=== PATIENT | female | born 1985 | race Hispanic/Latino ===

== ENCOUNTER 2020-11-30 18:53 | Emergency (ER) | payer BC ==
[~2020-11-30] VITALS: Ht 162.6 cm; Wt 90.7 kg
[2020-11-30] MEDS ORDERED: IBU600 MG PO (19:08)
[2020-11-30] MEDS ORDERED: CIPROFLOX-DEXA7.5 ML AD (19:09)
[2020-11-30] MEDS ORDERED: AMOX TR-K CLV1 EAC1 PO (19:09)
[2020-11-30] MEDS ORDERED: HYDROCODON-ACE1 EA10 PO (20:05)
== END 2020-11-30 20:10 | disposition home or self-care (01) ==
LOC: ED 18:53
DX: H60.91 Unspecified otitis externa, right ear (principal)
CPT/HCPCS: 99282